=== PATIENT | male | born 1945 | race Caucasian/White ===

== ENCOUNTER 2024-01-11 19:56 | Emergency (ER) | payer MEDICARE, BC ==
[~2024-01-11] VITALS: Ht 172.7 cm; Wt 89.8 kg
[2024-01-11] MEDS ORDERED: HYDROcodone 5-APAP 325 TAB PO ONE (20:50)
[2024-01-11 21:13] LABS: Source, Urine Clean Catch
[2024-01-11 21:24] LABS: Appearance, Urine Clear (Clear); Bilirubin, Urine Neg (Neg); Blood, Urine Neg (Neg); Color, Urine Yellow (P-Yellow); Glucose Qualitative, Urine Neg (Neg); Ketones, Urine Neg (Neg); Leukocyte Esterase, Urine Neg (Neg); Nitrite, Urine Neg (Neg); Protein, Urine Neg (Neg); Urobilinogen, Urine NORM (Normal); pH, Urine 6.5 (5.0-8.0)
[2024-01-11 21:30] VITALS: BP 136/73
[2024-01-11] MEDS ORDERED: HYDROCODONE-AC1 EA10 PO (21:47)
[2024-01-11] MEDS ORDERED: LIDO700A20 TOP (21:47)
== END 2024-01-11 22:01 | disposition home or self-care (01) ==
LOC: ER 19:56
PROVIDERS: Physician Assistant
DX: M54.50 Low back pain, unspecified (principal); I25.2 Old myocardial infarction; Z95.5 Presence of coronary angioplasty implant and graft; Z98.890 Other specified postprocedural states; Z88.8 Allergy status to other drugs, medicaments and biological substances; Z88.0 Allergy status to penicillin; Z79.01 Long term (current) use of anticoagulants
CPT/HCPCS: 72100; 81003; 99283-25